=== PATIENT | female | born 1975 | race Caucasian/White ===

== ENCOUNTER 2016-10-12 08:15 | Outpatient (RCR) | payer BC ==
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
== END 2016-10-24 13:07 | disposition home or self-care (01) ==
LOC: PT 08:15
PROVIDERS: ATTEND Orthopaedic Surgery
DX: Z47.89 Encounter for other orthopedic aftercare (principal); M25.562 Pain in left knee; M25.662 Stiffness of left knee, not elsewhere classified